=== PATIENT | male | born 1955 | race Caucasian/White ===

== ENCOUNTER 2018-06-28 21:24 | Emergency (ER) | payer MEDICAID ==
[~2018-06-28] VITALS: Ht 177.8 cm; Wt 82.2 kg
[~2018-06-28 21:24] MED LIST: ASPI-1265 PO; DIPH-423 PO; [UNRECOGNIZED DRUG - OTHER]
[2018-06-28 22:36] LABS: BASOPHILS % (AUTO) 0.5 % (0-1); EOSINOPHILS # (AUTO) 0.2 X10'3 (0-0.9); EOSINOPHILS % (AUTO) 1.6 % (0-6); HEMATOCRIT 38.9 % (42.0-52.0); HEMOGLOBIN 12.7 g/dl (14.0-17.9); LYMPHOCYTES # (AUTO) 1.7 X10'3 (1.1-4.8); LYMPHOCYTES % (AUTO) 17.5 % (21-51); MEAN CORPUSCULAR HEMOGLOBIN 28.6 PG (27.0-31.0); MEAN CORPUSCULAR HGB CONC 32.7 g/dL (33.0-36.5); MEAN CORPUSCULAR VOLUME 87.6 FL (78-98); MEAN PLATELET VOLUME 8.5 FL (7.4-10.4); MONOCYTES # (AUTO) 0.8 X10'3 (0-0.9); MONOCYTES % (AUTO) 7.8 % (2-12); NEUTROPHILS % (AUTO) 72.6 % (42-75); PLATELET COUNT 289 X10'3 (140-440); RED BLOOD COUNT 4.44 X10'6 (4.70-6.10); RED CELL DISTRIBUTION WIDTH 14.5 % (11.5-14.5); WHITE BLOOD COUNT 9.6 X10'3 (4.5-11.0)
[2018-06-28 22:45] LABS: INR 1.1 INR; PARTIAL THROMBOPLASTIN TIME 29 SECONDS (22-32)
[2018-06-28 22:47] LABS: ALANINE AMINOTRANSFERASE 23 U/L (12-78); ALBUMIN 3.1 G/DL (3.4-5.0); ALBUMIN/GLOBULIN RATIO 0.6 (1.1-1.5); ALKALINE PHOSPHATASE 104 IU/L (46-116); ANION GAP 6 (8-16); ASPARTATE AMINO TRANSFERASE 20 U/L (10-37); BILIRUBIN,TOTAL 0.3 MG/DL (0.1-1.0); BLOOD UREA NITROGEN 14 MG/DL (7-18); BUN/CREATININE RATIO 13.6 (5.4-32.0); CALCIUM 9.1 MG/DL (8.5-10.1); CHLORIDE 102 MMOL/L (99-107); CREATININE 1.03 MG/DL (0.60-1.10); GLUCOSE 138 MG/DL (70-104); POTASSIUM 3.6 MMOL/L (3.5-5.1); SODIUM 137 MMOL/L (135-145); TOTAL CARBON DIOXIDE 28.7 MMOL/L (24-32); TOTAL PROTEIN 8.2 G/DL (6.4-8.2); eGFR 73 ML/MIN
[2018-06-29] MEDS ORDERED: HYDROcodone/acetaminophen 5mg/325mg tablet PO ONE (00:50)
[2018-06-29 01:11] VITALS: BP 155/92
[2018-06-29] MEDS ORDERED: CEPH500C5 PO (01:23)
[2018-06-29] MEDS ORDERED: cephalexin 250mg capsule PO ONE (01:25)
== END 2018-06-29 01:43 | disposition home or self-care (01) ==
LOC: ER 21:25
DX: L03.116 Cellulitis of left lower limb (principal); Z88.8 Allergy status to other drugs, medicaments and biological substances; Z79.82 Long term (current) use of aspirin; Z79.899 Other long term (current) drug therapy
CPT/HCPCS: 36415; 80053; 83605; 84145; 85025; 85610; 85730; 87040; 99283

== ENCOUNTER 2020-02-13 20:35 | Inpatient (IN) | payer MEDICAID ==
[~2020-02-13] VITALS: Ht 177.8 cm; Wt 78.0 kg
[2020-02-13] MEDS ORDERED: normal saline 1000ML IV soln IVB ONE ×3 (21:55→22:40)
[2020-02-13 21:59] LABS: BASOPHILS # (AUTO) 0.1 X10'3 (0-0.2); BASOPHILS % (AUTO) 0.4 % (0-1); EOSINOPHILS % (AUTO) 0.3 % (0-6); HEMATOCRIT 45.5 % (42.0-52.0); HEMOGLOBIN 15.3 g/dl (14.0-17.9); LYMPHOCYTES # (AUTO) 0.8 X10'3 (1.1-4.8); LYMPHOCYTES % (AUTO) 5.7 % (21-51); MEAN CORPUSCULAR HGB CONC 33.6 g/dL (33.0-36.5); MEAN CORPUSCULAR VOLUME 92.4 FL (78-98); MEAN PLATELET VOLUME 9.2 FL (7.4-10.4); MONOCYTES # (AUTO) 0.4 X10'3 (0-0.9); MONOCYTES % (AUTO) 2.7 % (2-12); NEUTROPHILS # (AUTO) 13.4 X10'3 (1.8-7.7); NEUTROPHILS % (AUTO) 90.9 % (42-75); PLATELET COUNT 226 X10'3 (140-440); RED BLOOD COUNT 4.93 X10'6 (4.70-6.10); RED CELL DISTRIBUTION WIDTH 14.4 % (11.5-14.5); WHITE BLOOD COUNT 14.7 X10'3 (4.5-11.0)
[2020-02-13 22:13] LABS: ALANINE AMINOTRANSFERASE 24 U/L (12-78); ALBUMIN 3.5 G/DL (3.4-5.0); ALBUMIN/GLOBULIN RATIO 0.8 (1.1-1.5); ALKALINE PHOSPHATASE 92 IU/L (46-116); ANION GAP 7 (8-16); ASPARTATE AMINO TRANSFERASE 14 U/L (10-37); BILIRUBIN,TOTAL 0.7 MG/DL (0.1-1.0); BLOOD UREA NITROGEN 25 MG/DL (7-18); BUN/CREATININE RATIO 13.8 (5.4-32.0); CALCIUM 9.2 MG/DL (8.5-10.1); CHLORIDE 97 MMOL/L (99-107); CREATININE 1.81 MG/DL (0.60-1.10); GLUCOSE 123 MG/DL (70-104); POTASSIUM 3.5 MMOL/L (3.5-5.1); SODIUM 133 MMOL/L (135-145); TOTAL CARBON DIOXIDE 29.1 MMOL/L (24-32); TOTAL PROTEIN 8.1 G/DL (6.4-8.2); eGFR 38 ML/MIN
[2020-02-13] MEDS ORDERED: vancomycin/NS 1 GM ADD-VANTAGE 250 ML IV ONE (22:40)
[2020-02-13] MEDS ORDERED: piperacillin/tazo 3.375gm/50ml 50 ML IV ONE (22:40)
[2020-02-13] MEDS ORDERED: NO HOME MEDS (23:59)
[2020-02-14] MEDS ORDERED: magnesium 4gm in 100ml NS 100 ML IV PRN (00:10)
[2020-02-14] MEDS ORDERED: ondansetron/PF 4mg/2ml inj IV PRN (00:10)
[2020-02-14] MEDS ORDERED: magnesium 2GM in 50ml NS 50 ML IV PRN (00:10)
[2020-02-14] MEDS ORDERED: HYDROcodone/acetaminophen 5mg/325mg tablet PO PRN (00:10)
[2020-02-14] MEDS ORDERED: acetaminophen 325mg tablet PO PRN ×2 (00:10)
[2020-02-14] MEDS ORDERED: potassium Cl 20 mEq SR tablet PO PRN ×2 (00:10)
[2020-02-14] MEDS ORDERED: mag hydrox/Alum hydrox/simeth 30ml oral suspension PO PRN (00:10)
[2020-02-14] MEDS ORDERED: ipratropium/albuterol 3ml nebule NEB PRN (00:10)
[2020-02-14] MEDS ORDERED: magnesium hydroxide 30ml (MOM) UD suspension PO PRN (00:10)
[2020-02-14] MEDS ORDERED: potassium Cl 40MEQ/1/2NS 520ml 520 ML IV PRN ×2 (00:10)
[2020-02-14] MEDS: normal saline 1000ml 1,000 ML IV SCH ×3 (00:50→20:10)
--- NOTE | 2020-02-14 01:10 | NUR ---
Received report from SYRUP MAKER COOKTESSA Dalton. Patient to follow shortly.
[2020-02-14 01:30] VITALS: BP 160/79
[2020-02-14] MEDS: HYDROcodone/acetaminophen 10/325mg tab PO PRN ×3 (01:39→19:47)
[2020-02-14] MEDS ORDERED: piperacillin/tazo 3.375gm/50ml 50 ML IV SCH (06:00)
--- NOTE | 2020-02-14 06:00 | NUR ---
Patient in room [facility]. I have received report from TESSA Linda and had the opportunity to ask questions and assume patient care.
--- NOTE | 2020-02-14 06:40 | NUR ---
Problems reprioritized. Patient report given, questions answered & plan of care reviewed with Tariq ZARATE.
[2020-02-14 08:00] VITALS: BP 105/58
[2020-02-14] MEDS: K and/or MAG REPLACEMENT MC SCH ×2 (08:00→19:43)
[2020-02-14] MEDS ORDERED: morphine 2 MG/ML inj. syringe IV PRN (10:20)
[2020-02-14 12:34] VITALS: BP 101/60
[2020-02-14] MEDS: ceFAZolin/D5W- 1GM premix 50 ML IV SCH (15:07)
--- NOTE | 2020-02-14 18:23 | NUR ---
Problems reprioritized. Patient report given, questions answered & plan of care reviewed with TESSA Linda.
--- NOTE | 2020-02-14 18:25 | NUR ---
Patient in room [facility]. I have received report from Tariq ZARATE and had the opportunity to ask questions and assume patient care.
[2020-02-14 19:00] VITALS: BP 138/77
[2020-02-14] MEDS: enoxaparin 40mg/0.4ml syringe SQ SCH (19:49)
[2020-02-14] MEDS ORDERED: vancomycin/NS 1 GM ADD-VANTAGE 250 ML IV SCH ×2 (21:00→23:00)
[2020-02-15] VITALS: BP 131/60
[2020-02-15] MEDS: ceFAZolin/D5W- 1GM premix 50 ML IV SCH ×3 (01:00→15:25)
[2020-02-15] MEDS: HYDROcodone/acetaminophen 10/325mg tab PO PRN ×4 (01:02→20:19)
[2020-02-15] MEDS: normal saline 1000ml 1,000 ML IV SCH ×2 (04:46→15:25)
[2020-02-15 06:10] LABS: BASOPHILS % (AUTO) 0.4 % (0-1); EOSINOPHILS # (AUTO) 0.1 X10'3 (0-0.9); EOSINOPHILS % (AUTO) 1.5 % (0-6); HEMATOCRIT 35.7 % (42.0-52.0); LYMPHOCYTES # (AUTO) 1.1 X10'3 (1.1-4.8); LYMPHOCYTES % (AUTO) 12.6 % (21-51); MEAN CORPUSCULAR HEMOGLOBIN 31.5 PG (27.0-31.0); MEAN CORPUSCULAR HGB CONC 33.7 g/dL (33.0-36.5); MEAN CORPUSCULAR VOLUME 93.5 FL (78-98); MEAN PLATELET VOLUME 9.2 FL (7.4-10.4); MONOCYTES # (AUTO) 0.7 X10'3 (0-0.9); MONOCYTES % (AUTO) 8.5 % (2-12); NEUTROPHILS # (AUTO) 6.6 X10'3 (1.8-7.7); PLATELET COUNT 172 X10'3 (140-440); RED BLOOD COUNT 3.82 X10'6 (4.70-6.10); WHITE BLOOD COUNT 8.6 X10'3 (4.5-11.0)
[2020-02-15 06:24] LABS: ALANINE AMINOTRANSFERASE 66 U/L (12-78); ALBUMIN 2.3 G/DL (3.4-5.0); ALBUMIN/GLOBULIN RATIO 0.6 (1.1-1.5); ALKALINE PHOSPHATASE 83 IU/L (46-116); ANION GAP 9 (8-16); ASPARTATE AMINO TRANSFERASE 70 U/L (10-37); BILIRUBIN,TOTAL 0.4 MG/DL (0.1-1.0); BLOOD UREA NITROGEN 13 MG/DL (7-18); BUN/CREATININE RATIO 12.9 (5.4-32.0); CALCIUM 8.4 MG/DL (8.5-10.1); CHLORIDE 104 MMOL/L (99-107); CREATININE 1.01 MG/DL (0.60-1.10); GLUCOSE 135 MG/DL (70-104); MAGNESIUM 1.9 MG/DL (1.5-2.4); POTASSIUM 3.7 MMOL/L (3.5-5.1); SODIUM 137 MMOL/L (135-145); TOTAL CARBON DIOXIDE 23.9 MMOL/L (24-32); TOTAL PROTEIN 6.3 G/DL (6.4-8.2); eGFR 75 ML/MIN
--- NOTE | 2020-02-15 06:30 | NUR ---
Problems reprioritized. Patient report given, questions answered & plan of care reviewed with Yin ZARATE.
[2020-02-15 07:45] VITALS: BP 121/77
[2020-02-15] MEDS: K and/or MAG REPLACEMENT MC SCH ×2 (08:00→20:00)
[2020-02-15 11:30] VITALS: BP 134/80
--- NOTE | 2020-02-15 11:51 | NUR ---
SPOKE WITH ABOUT MRI. WAS NOT SURE WHY MRI OF LOWER EXTREM. WAS CANCELED BUT HE SAID IT WAS OK TO CONTINUE WITH MRI. PUT IN NEW ORDER. NOTIFIED THAT FLUIDS ARE RUNNING. HIS WISHES TO CONTINUE FLUIDS AT THIS TIME. DOES NOT WANT A REDRAW OF LACTIC.
--- NOTE | 2020-02-15 12:58 | NUR ---
states MRI not really needed due to they dont think pt. has osteomyelitis.
--- NOTE | 2020-02-15 18:13 | NUR ---
Gave report to Karyn ZARATE.
[2020-02-15] MEDS: vancomycin/NS 1 GM ADD-VANTAGE 250 ML IV SCH (18:47)
[2020-02-15 20:00] VITALS: BP 131/81
[2020-02-15] MEDS: lactobacillus rhamnosus 10,000 MMU CELLS/CAPSULE PO SCH (20:18)
[2020-02-15] MEDS: enoxaparin 40mg/0.4ml syringe SQ SCH (20:19)
[2020-02-15] MEDS: piperacillin/tazo 4.5gm/100ml 100 ML IV SCH (23:38)
[2020-02-16] VITALS: BP 129/80
[2020-02-16] MEDS: normal saline 1000ml 1,000 ML IV SCH (02:10)
[2020-02-16] MEDS: vancomycin/NS 1 GM ADD-VANTAGE 250 ML IV SCH (06:07)
[2020-02-16 06:50] LABS: BASOPHILS % (AUTO) 0.5 % (0-1); EOSINOPHILS # (AUTO) 0.2 X10'3 (0-0.9); EOSINOPHILS % (AUTO) 2.1 % (0-6); HEMATOCRIT 33.5 % (42.0-52.0); HEMOGLOBIN 11.3 g/dl (14.0-17.9); LYMPHOCYTES # (AUTO) 1.1 X10'3 (1.1-4.8); LYMPHOCYTES % (AUTO) 15.3 % (21-51); MEAN CORPUSCULAR HEMOGLOBIN 31.6 PG (27.0-31.0); MEAN CORPUSCULAR HGB CONC 33.7 g/dL (33.0-36.5); MEAN CORPUSCULAR VOLUME 93.6 FL (78-98); MEAN PLATELET VOLUME 8.9 FL (7.4-10.4); MONOCYTES # (AUTO) 0.8 X10'3 (0-0.9); MONOCYTES % (AUTO) 11.4 % (2-12); NEUTROPHILS # (AUTO) 5.3 X10'3 (1.8-7.7); NEUTROPHILS % (AUTO) 70.7 % (42-75); PLATELET COUNT 206 X10'3 (140-440); RED BLOOD COUNT 3.58 X10'6 (4.70-6.10); RED CELL DISTRIBUTION WIDTH 14.5 % (11.5-14.5); WHITE BLOOD COUNT 7.5 X10'3 (4.5-11.0)
[2020-02-16 07:00] VITALS: BP 114/72
[2020-02-16 07:10] LABS: ALANINE AMINOTRANSFERASE 75 U/L (12-78); ALBUMIN 2.2 G/DL (3.4-5.0); ALBUMIN/GLOBULIN RATIO 0.5 (1.1-1.5); ALKALINE PHOSPHATASE 104 IU/L (46-116); ANION GAP 7 (8-16); ASPARTATE AMINO TRANSFERASE 54 U/L (10-37); BILIRUBIN,TOTAL 0.5 MG/DL (0.1-1.0); BLOOD UREA NITROGEN 13 MG/DL (7-18); BUN/CREATININE RATIO 12.4 (5.4-32.0); CALCIUM 8.2 MG/DL (8.5-10.1); CHLORIDE 105 MMOL/L (99-107); CREATININE 1.05 MG/DL (0.60-1.10); GLUCOSE 115 MG/DL (70-104); POTASSIUM 3.9 MMOL/L (3.5-5.1); SODIUM 138 MMOL/L (135-145); TOTAL CARBON DIOXIDE 25.7 MMOL/L (24-32); TOTAL PROTEIN 6.4 G/DL (6.4-8.2); eGFR 71 ML/MIN
--- NOTE | 2020-02-16 07:12 | NUR ---
Patient in room [facility]. I have received report from toña ZARATE and had the opportunity to ask questions and assume patient care.
[2020-02-16] MEDS: K and/or MAG REPLACEMENT MC SCH ×2 (08:00→19:51)
[2020-02-16] MEDS: lactobacillus rhamnosus 10,000 MMU CELLS/CAPSULE PO SCH ×2 (09:09→22:21)
[2020-02-16] MEDS: piperacillin/tazo 4.5gm/100ml 100 ML IV SCH (09:09)
[2020-02-16] MEDS: HYDROcodone/acetaminophen 10/325mg tab PO PRN ×3 (09:15→22:23)
[2020-02-16 11:00] VITALS: BP 120/79
[2020-02-16] MEDS: ceFAZolin/D5W- 1GM premix 50 ML IV SCH ×2 (14:06→15:35)
[2020-02-16] MEDS: CLINDAMYCIN/D5W 900mg/50ml 50 ML IV SCH (15:31)
[2020-02-16 18:15] VITALS: BP 129/75
--- NOTE | 2020-02-16 18:42 | NUR ---
patient seen by Dr smith and Dr Nowak IV ABX changed see Emar. rose for pain x2 with effect. ambulated with PT. Report given to Juanis ZARATE
--- NOTE | 2020-02-16 19:14 | NUR ---
Patient in room [facility]. I have received report from TESSA Turner and had the opportunity to ask questions and assume patient care.
[2020-02-16] MEDS: enoxaparin 40mg/0.4ml syringe SQ SCH (22:24)
[2020-02-17] MEDS: CLINDAMYCIN/D5W 900mg/50ml 50 ML IV SCH ×3 (00:07→17:56)
[2020-02-17 00:15] VITALS: BP 140/80
[2020-02-17] MEDS: ceFAZolin/D5W- 1GM premix 50 ML IV SCH ×3 (00:50→17:24)
[2020-02-17] MEDS ORDERED: VANCOMYCIN LEVEL IV ONE (05:30)
[2020-02-17 06:00] VITALS: BP 133/77
--- NOTE | 2020-02-17 06:10 | NUR ---
Problems reprioritized. Patient report given, questions answered & plan of care reviewed with TESSA Turner.
--- NOTE | 2020-02-17 06:31 | NUR ---
Patient in room [facility]. I have received report from Juanis ZARATE and had the opportunity to ask questions and assume patient care.
[2020-02-17 07:03] LABS: BASOPHILS % (AUTO) 0.5 % (0-1); EOSINOPHILS # (AUTO) 0.1 X10'3 (0-0.9); EOSINOPHILS % (AUTO) 2.1 % (0-6); HEMATOCRIT 37.3 % (42.0-52.0); HEMOGLOBIN 12.5 g/dl (14.0-17.9); LYMPHOCYTES # (AUTO) 1.1 X10'3 (1.1-4.8); LYMPHOCYTES % (AUTO) 16.3 % (21-51); MEAN CORPUSCULAR HEMOGLOBIN 31.6 PG (27.0-31.0); MEAN CORPUSCULAR HGB CONC 33.6 g/dL (33.0-36.5); MEAN CORPUSCULAR VOLUME 93.9 FL (78-98); MEAN PLATELET VOLUME 8.5 FL (7.4-10.4); MONOCYTES # (AUTO) 0.9 X10'3 (0-0.9); MONOCYTES % (AUTO) 13.2 % (2-12); NEUTROPHILS # (AUTO) 4.4 X10'3 (1.8-7.7); NEUTROPHILS % (AUTO) 67.9 % (42-75); PLATELET COUNT 205 X10'3 (140-440); RED BLOOD COUNT 3.97 X10'6 (4.70-6.10); RED CELL DISTRIBUTION WIDTH 14.7 % (11.5-14.5); WHITE BLOOD COUNT 6.5 X10'3 (4.5-11.0)
[2020-02-17 07:32] LABS: ALANINE AMINOTRANSFERASE 72 U/L (12-78); ALBUMIN 2.2 G/DL (3.4-5.0); ALBUMIN/GLOBULIN RATIO 0.5 (1.1-1.5); ALKALINE PHOSPHATASE 124 IU/L (46-116); ANION GAP 9 (8-16); ASPARTATE AMINO TRANSFERASE 45 U/L (10-37); BILIRUBIN,TOTAL 0.5 MG/DL (0.1-1.0); BLOOD UREA NITROGEN 13 MG/DL (7-18); BUN/CREATININE RATIO 12.6 (5.4-32.0); CALCIUM 8.5 MG/DL (8.5-10.1); CHLORIDE 104 MMOL/L (99-107); CREATININE 1.03 MG/DL (0.60-1.10); GLUCOSE 117 MG/DL (70-104); MAGNESIUM 2.3 MG/DL (1.5-2.4); POTASSIUM 4.2 MMOL/L (3.5-5.1); SODIUM 138 MMOL/L (135-145); TOTAL PROTEIN 6.8 G/DL (6.4-8.2); VANCOMYCIN,TROUGH 4.2 UG/ML (6.0-14.0); eGFR 73 ML/MIN
[2020-02-17] MEDS: K and/or MAG REPLACEMENT MC SCH ×2 (08:00→20:00)
[2020-02-17] MEDS: lactobacillus rhamnosus 10,000 MMU CELLS/CAPSULE PO SCH ×2 (08:39→21:58)
[2020-02-17] MEDS: HYDROcodone/acetaminophen 10/325mg tab PO PRN ×3 (08:45→21:58)
[2020-02-17 11:00] VITALS: BP 126/77
[2020-02-17 18:15] VITALS: BP 137/78
--- NOTE | 2020-02-17 18:23 | NUR ---
Patient in room [facility]. I have received report from TESSA Turner and had the opportunity to ask questions and assume patient care.
--- NOTE | 2020-02-17 18:39 | NUR ---
patient up ambulating with PT see note. seen by Dr Nowak and Dr smith, all cares given continue with IV ABX, Swelling to bilat lower legs improving . Report given to Juanis ZARATE
[2020-02-17] MEDS: enoxaparin 40mg/0.4ml syringe SQ SCH (21:58)
[2020-02-18] VITALS: BP 123/76
[2020-02-18] MEDS: CLINDAMYCIN/D5W 900mg/50ml 50 ML IV SCH ×3 (00:12→17:39)
[2020-02-18] MEDS: ceFAZolin/D5W- 1GM premix 50 ML IV SCH ×4 (01:21→23:37)
--- NOTE | 2020-02-18 06:35 | NUR ---
Patient in room [facility]. I have received report from DUC ZARATE and had the opportunity to ask questions and assume patient care.
--- NOTE | 2020-02-18 06:41 | NUR ---
Problems reprioritized. Patient report given, questions answered & plan of care reviewed with TESSA Ni.
[2020-02-18 07:00] VITALS: BP 128/74
[2020-02-18] MEDS: lactobacillus rhamnosus 10,000 MMU CELLS/CAPSULE PO SCH ×2 (07:52→20:53)
[2020-02-18] MEDS: enoxaparin 40mg/0.4ml syringe SQ SCH (07:53)
[2020-02-18] MEDS: K and/or MAG REPLACEMENT MC SCH ×2 (08:00→20:00)
[2020-02-18] MEDS: HYDROcodone/acetaminophen 10/325mg tab PO PRN (08:10)
[2020-02-18 08:27] LABS: BASOPHILS % (AUTO) 0.6 % (0-1); EOSINOPHILS # (AUTO) 0.2 X10'3 (0-0.9); EOSINOPHILS % (AUTO) 2.3 % (0-6); HEMATOCRIT 34.9 % (42.0-52.0); HEMOGLOBIN 11.7 g/dl (14.0-17.9); LYMPHOCYTES # (AUTO) 1.3 X10'3 (1.1-4.8); MEAN CORPUSCULAR HEMOGLOBIN 31.2 PG (27.0-31.0); MEAN CORPUSCULAR HGB CONC 33.6 g/dL (33.0-36.5); MEAN PLATELET VOLUME 8.9 FL (7.4-10.4); MONOCYTES % (AUTO) 12.8 % (2-12); NEUTROPHILS # (AUTO) 5.4 X10'3 (1.8-7.7); NEUTROPHILS % (AUTO) 68.3 % (42-75); PLATELET COUNT 267 X10'3 (140-440); RED BLOOD COUNT 3.75 X10'6 (4.70-6.10); RED CELL DISTRIBUTION WIDTH 14.3 % (11.5-14.5); WHITE BLOOD COUNT 7.9 X10'3 (4.5-11.0)
[2020-02-18 08:45] LABS: ALANINE AMINOTRANSFERASE 59 U/L (12-78); ALBUMIN 2.2 G/DL (3.4-5.0); ALBUMIN/GLOBULIN RATIO 0.5 (1.1-1.5); ALKALINE PHOSPHATASE 132 IU/L (46-116); ANION GAP 9 (8-16); ASPARTATE AMINO TRANSFERASE 33 U/L (10-37); BILIRUBIN,TOTAL 0.5 MG/DL (0.1-1.0); BLOOD UREA NITROGEN 11 MG/DL (7-18); BUN/CREATININE RATIO 10.3 (5.4-32.0); CALCIUM 8.3 MG/DL (8.5-10.1); CHLORIDE 103 MMOL/L (99-107); CREATININE 1.07 MG/DL (0.60-1.10); GLUCOSE 111 MG/DL (70-104); MAGNESIUM 2.3 MG/DL (1.5-2.4); SODIUM 139 MMOL/L (135-145); TOTAL CARBON DIOXIDE 27.3 MMOL/L (24-32); TOTAL PROTEIN 6.9 G/DL (6.4-8.2); eGFR 70 ML/MIN
[2020-02-18 11:00] VITALS: BP 116/62
--- NOTE | 2020-02-18 17:17 | NUR ---
Problems reprioritized. Patient report given, questions answered & plan of care reviewed with ALESSIA ZARATE.
[2020-02-18 19:00] VITALS: BP 137/71
[2020-02-19] VITALS: BP 137/71
[2020-02-19] MEDS: CLINDAMYCIN/D5W 900mg/50ml 50 ML IV SCH ×3 (00:20→15:06)
[2020-02-19 06:06] LABS: BASOPHILS % (AUTO) 0.7 % (0-1); EOSINOPHILS # (AUTO) 0.2 X10'3 (0-0.9); EOSINOPHILS % (AUTO) 2.5 % (0-6); HEMATOCRIT 36.5 % (42.0-52.0); HEMOGLOBIN 12.1 g/dl (14.0-17.9); LYMPHOCYTES # (AUTO) 1.2 X10'3 (1.1-4.8); LYMPHOCYTES % (AUTO) 19.1 % (21-51); MEAN CORPUSCULAR HEMOGLOBIN 30.5 PG (27.0-31.0); MEAN CORPUSCULAR HGB CONC 33.2 g/dL (33.0-36.5); MEAN CORPUSCULAR VOLUME 91.9 FL (78-98); MEAN PLATELET VOLUME 8.8 FL (7.4-10.4); MONOCYTES # (AUTO) 0.7 X10'3 (0-0.9); MONOCYTES % (AUTO) 10.7 % (2-12); NEUTROPHILS # (AUTO) 4.2 X10'3 (1.8-7.7); PLATELET COUNT 318 X10'3 (140-440); RED BLOOD COUNT 3.97 X10'6 (4.70-6.10); RED CELL DISTRIBUTION WIDTH 14.3 % (11.5-14.5); WHITE BLOOD COUNT 6.2 X10'3 (4.5-11.0)
[2020-02-19 06:26] LABS: ALANINE AMINOTRANSFERASE 53 U/L (12-78); ALBUMIN 2.2 G/DL (3.4-5.0); ALBUMIN/GLOBULIN RATIO 0.5 (1.1-1.5); ALKALINE PHOSPHATASE 135 IU/L (46-116); ANION GAP 9 (8-16); ASPARTATE AMINO TRANSFERASE 29 U/L (10-37); BILIRUBIN,TOTAL 0.4 MG/DL (0.1-1.0); BLOOD UREA NITROGEN 10 MG/DL (7-18); BUN/CREATININE RATIO 10.5 (5.4-32.0); CALCIUM 8.5 MG/DL (8.5-10.1); CHLORIDE 105 MMOL/L (99-107); CREATININE 0.95 MG/DL (0.60-1.10); GLUCOSE 109 MG/DL (70-104); MAGNESIUM 2.3 MG/DL (1.5-2.4); POTASSIUM 3.7 MMOL/L (3.5-5.1); SODIUM 140 MMOL/L (135-145); TOTAL CARBON DIOXIDE 25.9 MMOL/L (24-32); eGFR 80 ML/MIN
--- NOTE | 2020-02-19 06:26 | NUR ---
Problems reprioritized. Patient report given, questions answered & plan of care reviewed with RICH. Addendum: 02/19/20 at 0627 by Bakari Bae RN Amended: Links added.
[2020-02-19 07:45] VITALS: BP 151/89
[2020-02-19] MEDS: lactobacillus rhamnosus 10,000 MMU CELLS/CAPSULE PO SCH ×2 (07:57→20:30)
[2020-02-19] MEDS: ceFAZolin/D5W- 1GM premix 50 ML IV SCH ×2 (07:57→16:36)
[2020-02-19] MEDS: enoxaparin 40mg/0.4ml syringe SQ SCH (07:58)
[2020-02-19] MEDS: K and/or MAG REPLACEMENT MC SCH ×2 (08:00→20:00)
[2020-02-19 11:33] VITALS: BP 143/79
--- NOTE | 2020-02-19 13:40 | NUR ---
Initial: pt seen at bedside reports no chewing or swallowing difficulty, reports that his appetite is normal and is "off and on," eating average of 75-100% regular diet. Possible discharge tomorrow per MD note. No nutrition problem. Recommend: 1. continue regular diet 2. bowel care as needed 3. wt per rx Addendum: 02/19/20 at [address] Amended: Links added.
[2020-02-19] MEDS: HYDROcodone/acetaminophen 10/325mg tab PO PRN ×2 (14:10→20:29)
--- NOTE | 2020-02-19 18:11 | NUR ---
Problems reprioritized. Patient report given, questions answered & plan of care reviewed with TESSA AGGARWAL.
[2020-02-19 19:00] VITALS: BP 145/79
[2020-02-19] MEDS ORDERED: CEPH500C2 PO (20:18)
[2020-02-20] VITALS: BP 145/81
[2020-02-20] MEDS: ceFAZolin/D5W- 1GM premix 50 ML IV SCH ×2 (00:17→09:04)
[2020-02-20] MEDS: CLINDAMYCIN/D5W 900mg/50ml 50 ML IV SCH ×2 (00:57→07:27)
--- NOTE | 2020-02-20 06:10 | NUR ---
Problems reprioritized. Patient report given, questions answered & plan of care reviewed with Iman. Addendum: 02/20/20 at 0611 by Bakari Bae RN Amended: Links added.
[2020-02-20 07:00] VITALS: BP 134/78
[2020-02-20] MEDS: enoxaparin 40mg/0.4ml syringe SQ SCH (07:27)
[2020-02-20] MEDS: lactobacillus rhamnosus 10,000 MMU CELLS/CAPSULE PO SCH (07:27)
[2020-02-20] MEDS: K and/or MAG REPLACEMENT MC SCH (08:00)
[2020-02-20] MEDS ORDERED: CEPH500C2 PO (09:41)
--- NOTE | 2020-02-20 12:13 | NUR ---
PATIENT STABLE AND APPROPRIATE FOR DISCHARGE. IV REMOVED, ALL BELONGINGS TAKEN FROM ROOM. NEW PRESCRIPTIONS TRANSMITTED TO PATIENTS PREFERRED PHARMACY. PATIENT IS AWARE OF NEXT DUE DOSES ON ALL MEDICATIONS. PATIENT IS AWARE OF FOLLOW UP APPOINTMENT AT THE [facility] February AT 0800. ALL DISCHARGE INSTRUCTIONS AND EDUCATION GIVEN AND REVIEWED WITH PATIENT, VERBALIZES UNDERSTANDING, ALL QUESTIONS ANSWERED.
--- NOTE | 2020-02-21 11:50 | NUR ---
CASE MANAGEMENT DISCHARGE FOLLOW UP: Spoke with pt via telephone. Pt reports that he is doing "hanging in there" and that his leg is feeling "pretty good." Denies fever, worsening signs of infection. Verbalizes understanding of s/sx requiring further evaluation/emergent assistance. Pt verbalizes understanding of new prescription, states that he has picked up 1st prescription for Keflex, would like to be informed of how to get access to second prescription ordered, will follow up with [facility] [place] ([phone]). Pt verbalizes compliance with MD discharge instructions. Pt verbalizes understanding of the importance in keeping follow-up appointments, will go to wound care appointment tomorrow morning, 02/22/20 @ 0800, at [facility]. Pt states no further questions/concerns at this time. 1313 Spoke with printing supplies sales representative from [facility], she states that 2nd prescription of Keflex will remain on file until filled, but insurance won't pay for medication until current Rx is completed. Will notify patient. 1319 Notified pt of conversation that I had with pharmacy, pt verbalizes understanding.
== END 2020-02-20 11:42 | disposition home or self-care (01) | DRG 720 ==
LOC: ER 20:35 → ED HOLD 02-14 00:10 → SUR 3N 02-14 01:25
PROVIDERS: ADMIT Family Medicine; ATTEND Internal Medicine
DX: A41.9 Sepsis, unspecified organism (principal); E87.1 Hypo-osmolality and hyponatremia; L03.115 Cellulitis of right lower limb; N17.0 Acute kidney failure with tubular necrosis; E86.0 Dehydration; E87.2 Acidosis; F15.90 Other stimulant use, unspecified, uncomplicated; Z82.3 Family history of stroke; Z88.8 Allergy status to other drugs, medicaments and biological substances
CPT/HCPCS: 36415; 80053; 80202; 83605; 83735; 84145; 85025; 87040; 87081; 94760; 96365; 97110; 97116; 97161; 97530; 99285; G0378; J0690; J1650; J2543; J3370; J3490; J7030

== ENCOUNTER 2020-02-22 10:11 | Outpatient (CLI) | payer MEDICAID ==
[~2020-02-22 10:11] MED LIST changes: -ASPI-1265 PO; +CEPH500C2 PO; -DIPH-423 PO; -[UNRECOGNIZED DRUG - OTHER]
== END 2020-02-22 23:59 | disposition home or self-care (01) ==
LOC: WOUND CARE 10:11
PROVIDERS: ATTEND Nurse Practitioner
DX: S70.311A Abrasion, right thigh, initial encounter (principal); L03.116 Cellulitis of left lower limb; L03.115 Cellulitis of right lower limb; H93.19 Tinnitus, unspecified ear; H35.00 Unspecified background retinopathy; E87.1 Hypo-osmolality and hyponatremia; F15.90 Other stimulant use, unspecified, uncomplicated; F12.10 Cannabis abuse, uncomplicated; Z87.828 Personal history of other (healed) physical injury and trauma; Z86.14 Personal history of Methicillin resistant Staphylococcus aureus infection; X58.XXXA Exposure to other specified factors, initial encounter; Y93.89 Activity, other specified; Y92.89 Other specified places as the place of occurrence of the external cause; Y99.8 Other external cause status
CPT/HCPCS: G0463

== ENCOUNTER 2020-08-29 11:43 | Emergency (ER) | payer MEDICAID ==
[~2020-08-29] VITALS: Ht 177.8 cm; Wt 92.7 kg
[2020-08-29 11:53] VITALS: BP 138/91
== END 2020-08-29 17:01 | disposition left against medical advice (07) ==
LOC: ER 11:44
DX: S51.811A Laceration without foreign body of right forearm, initial encounter (principal); Z53.21 Procedure and treatment not carried out due to patient leaving prior to being seen by health care provider; W19.XXXA Unspecified fall, initial encounter; Y93.89 Activity, other specified; Y92.89 Other specified places as the place of occurrence of the external cause; Y99.8 Other external cause status

== ENCOUNTER 2020-10-27 08:53 | Emergency (ER) | payer MEDICAID ==
[~2020-10-27] VITALS: Ht 177.8 cm; Wt 90.9 kg
[2020-10-27 09:34] VITALS: BP_SYST 169
[2020-10-27] MEDS ORDERED: HYDROcodone/acetaminophen 5mg/325mg tablet PO ONE (10:10)
== END 2020-10-27 12:15 | disposition home or self-care (01) ==
LOC: ER 08:54
DX: S00.83XA Contusion of other part of head, initial encounter (principal); Z59.0 Homelessness; Z88.8 Allergy status to other drugs, medicaments and biological substances; Z88.6 Allergy status to analgesic agent; Z79.2 Long term (current) use of antibiotics; Y04.0XXA Assault by unarmed brawl or fight, initial encounter; Y93.89 Activity, other specified; Y92.89 Other specified places as the place of occurrence of the external cause; Y99.8 Other external cause status
CPT/HCPCS: 70450; 70486; 99285

== ENCOUNTER 2021-10-07 01:14 | Emergency (ER) | payer BC, MEDICAID ==
[~2021-10-07] VITALS: Ht 177.8 cm; Wt 102.0 kg
[2021-10-07] MEDS ORDERED: cephalexin 250mg capsule PO ONE (04:30)
[2021-10-07] MEDS ORDERED: sulfamethoxazole/trimethoprim DS (800/160mg) tablet PO ONE (04:30)
[2021-10-07] MEDS ORDERED: SULF1TAB45 PO (04:31)
[2021-10-07] MEDS ORDERED: CEPH-585 PO (04:31)
[2021-10-07] MEDS ORDERED: LISI20TA28 PO (04:33)
[2021-10-07 04:50] VITALS: BP 164/124
== END 2021-10-07 04:52 | disposition home or self-care (01) ==
LOC: ER 01:15
DX: L03.115 Cellulitis of right lower limb (principal); M79.671 Pain in right foot; F15.90 Other stimulant use, unspecified, uncomplicated; Z59.00 Homelessness unspecified; Z88.8 Allergy status to other drugs, medicaments and biological substances; Z79.2 Long term (current) use of antibiotics; Z79.899 Other long term (current) drug therapy
CPT/HCPCS: 99283

== ENCOUNTER 2023-10-20 16:08 | Emergency (ER) | payer BC, MEDICAID ==
[~2023-10-20] VITALS: Ht 177.8 cm; Wt 92.2 kg
[2023-10-20 16:10] VITALS: TEMP 97.5
[2023-10-20] MEDS: ondansetron/PF 4mg/2ml inj IV ONE (16:33)
[2023-10-20] MEDS: normal saline 1000ML IV soln IV ONE (16:33)
[2023-10-20 16:49] LABS: BASOPHILS # (AUTO) 0.1 X10'3 (0-0.2); BASOPHILS % (AUTO) 0.7 % (0-1); EOSINOPHILS # (AUTO) 0.1 X10'3 (0-0.9); EOSINOPHILS % (AUTO) 0.7 % (0-6); HEMATOCRIT 51.6 % (42.0-52.0); HEMOGLOBIN 17.7 g/dl (14.0-17.9); LYMPHOCYTES % (AUTO) 32.7 % (21-51); MEAN CORPUSCULAR HEMOGLOBIN 32.3 PG (27.0-31.0); MEAN CORPUSCULAR HGB CONC 34.3 g/dL (33.0-36.5); MEAN CORPUSCULAR VOLUME 94.1 FL (78-98); MEAN PLATELET VOLUME 9.6 FL (7.4-10.4); MONOCYTES # (AUTO) 0.5 X10'3 (0-0.9); MONOCYTES % (AUTO) 5.7 % (2-12); NEUTROPHILS # (AUTO) 5.5 X10'3 (1.8-7.7); NEUTROPHILS % (AUTO) 60.2 % (42-75); PLATELET COUNT 275 X10'3 (140-440); RED BLOOD COUNT 5.48 X10'6 (4.70-6.10); RED CELL DISTRIBUTION WIDTH 14.5 % (11.5-14.5); WHITE BLOOD COUNT 9.2 X10'3 (4.5-11.0)
[2023-10-20 17:00] LABS: ALBUMIN 4.4 G/DL (3.4-5.0); ANION GAP 19 (8-16); BLOOD UREA NITROGEN 26 MG/DL (7-18); BUN/CREATININE RATIO 13.5 (10.0-20.0); CALCIUM 9.6 MG/DL (8.5-10.1); CHLORIDE 101 MMOL/L (99-107); CREATININE 1.92 MG/DL (0.60-1.10); GLUCOSE 204 MG/DL (70-104); SODIUM 139 MMOL/L (135-145); eCRCL 39 ML/MIN; eGFR 35 ML/MIN
[2023-10-20] MEDS ORDERED: POTA-207 PO (17:56)
[2023-10-20] MEDS: potassium Cl 20 mEq SR tablet PO STA (18:03)
[2023-10-20] MEDS: normal saline 1000ML IV soln IVB ONE (18:04)
[2023-10-20 19:14] VITALS: BP 122/77; PULSE 93; RESP 15; O2SAT 98
== END 2023-10-20 19:16 | disposition home or self-care (01) ==
LOC: ER 16:08
DX: E87.6 Hypokalemia (principal); E86.0 Dehydration; F15.90 Other stimulant use, unspecified, uncomplicated; Z79.52 Long term (current) use of systemic steroids; Z88.8 Allergy status to other drugs, medicaments and biological substances; Z79.2 Long term (current) use of antibiotics; Z59.00 Homelessness unspecified
CPT/HCPCS: 36415; 71045; 80048; 84145; 85025; 96361; 96374; 99284; J2405; J7030